=== PATIENT | female | born 1970 | race Caucasian/White ===

== ENCOUNTER 2020-10-09 12:05 | Emergency (ER) | payer OTHER, MEDICAID, SELFPAY ==
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
--- NOTE | ~2020-10-09 | CT_ITS ---
EXAMINATION: CT LEFT LOWER LEG. CLINICAL INFORMATION: Tibial plateau fracture COMPARISON: None TECHNIQUE: Axial 3 mm thin and reformatted 1 mm thin sagittal and coronal images of left lower leg were obtained. DLP 291. FINDINGS: There is a vertical fracture line extending from the lateral tibial plateau inferiorly to the left proximal tibia with mild depression of the tibial plateau, mild displacement and mild soft tissue swelling. No additional fractures seen. There is moderate suprapatellar joint effusion noted. CT/CT lower leg LT wo con IMPRESSION: Lateral tibial depressed and mildly displaced fracture extending to the lateral proximal tibia. There is moderate suprapatellar joint effusion
[2020-10-09 12:12] VITALS: BP 152/87; PULSE 103; RESP 18; TEMP 36.7; O2SAT 100; BMI 37.4
[2020-10-09] MEDS: Acetaminophen 325 MG TABLET 650 MG PO (13:56)
[2020-10-09 14:55] VITALS: BP 146/78; PULSE 78; RESP 16; TEMP 36.9; O2SAT 100
--- NOTE | 2020-10-09 15:42 | ECG_ITS ---
Test Reason : FALL Blood Pressure : / mmHG Vent. Rate : 077 BPM Atrial Rate : 077 BPM P-R Int : 136 ms QRS Dur : 082 ms QT Int : 382 ms P-R-T Axes : 052 021 019 degrees QTc Int : 432 ms Normal sinus rhythm Normal ECG No previous ECGs available Referred By: Demar Barone Electronically Signed By:Saeed Caraballo
[2020-10-09 16:16] LABS: MANUAL DIFF FLAG NO
[2020-10-09 16:18] LABS: Basophils Percent Auto 0.5 % (0-2); Eosinophils Absolute Auto 0.4 X10*3/uL (0.0-0.4); Eosinophils Percent Auto 5.6 % (0-4); Hemoglobin 9.5 g/dl (12.0-16.0); Imm Gran Abs Auto 0.01 X10*3/uL (0.00-0.03); Imm Gran Pct Auto 0.2 % (0.0-0.4); Lymphocytes Percent Auto 29.9 % (20-40); Mean Corpuscular HGB Conc 29.7 g/dl (31.0-35.0); Mean Corpuscular Hemoglobin 20.6 pg (27.0-33.0); Mean Corpuscular Volume 69.3 fL (80-98); Mean Platelet Volume 10.5 fL (9.4-12.3); Monocytes Absolute Auto 0.5 X10*3/uL (0.1-1.2); Monocytes Percent Auto 8.2 % (2-11); Neutrophils Absolute Auto 3.6 X10*3/uL (2.0-8.3); Neutrophils Percent Auto 55.6 % (45-73); Platelet Count 417 X10*3/uL (160-400); Red Blood Count 4.62 X10*6/uL (4.20-5.50); Red Cell Distribution Width 17.8 % (11.0-16.0); White Blood Count 6.6 X10*3/uL (4.8-10.8)
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
[2020-10-09 16:38] LABS: INTERNATIONAL NORM RATIO 1.1 (0.9-1.1); Prothrombin Time 13.2 SEC (10.8-13.0)
[2020-10-09 16:40] LABS: Alanine Aminotransferase 40 U/L (0-31); Alkaline Phosphatase 62 U/L (39-117); Anion Gap 13 (12-20); Aspartate Amino Transferase 30 U/L (5-31); Bilirubin Total 0.3 mg/dL (0.0-1.0); Blood Urea Nitrogen 10 mg/dL (9-16); Calcium 9.2 mg/dL (8.4-10.2); Carbon Dioxide 25 mmol/L (22-29); Chloride 103 mmol/L (96-108); Creatinine Clr Calc Pharmacy 111.6; Estimated Glomerular Filt Rate > 60; Glucose Random 105 mg/dL (60-115); Sodium 137 mmol/L (135-145); Total Protein 7.3 g/dL (6.5-8.0)
[2020-10-09 20:09] VITALS: BP 156/71; PULSE 83; RESP 16; TEMP 36.8; O2SAT 100
[2020-10-09] MEDS: oxyCODONE HCl Immed Release 5 MG TABLET PO (20:35)
[2020-10-09] MEDS: Acetaminophen 325 MG TABLET 975 MG PO (20:35)
--- NOTE | 2020-10-10 02:22 | PC.NURSE ---
PT SLEEPING WITH GOOD RESPIRATORY EFFORT AND RATE.
[2020-10-10 03:25] VITALS: BP 155/69; PULSE 79; RESP 18; O2SAT 98
[2020-10-10] MEDS: Morphine Sulfate Immed Release 15 MG TABLET PO ×3 (03:37→20:06)
[2020-10-10] MEDS: Acetaminophen 325 MG TABLET 650 MG PO ×3 (03:38→16:14)
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
[2020-10-10 09:31] VITALS: BP 140/60; PULSE 71; RESP 20; O2SAT 99
[2020-10-10] MEDS: Losartan Potassium 50 MG TABLET PO (09:37)
[2020-10-10 09:51] LABS: COVID-19 Test Negative (Negative)
--- NOTE | 2020-10-10 10:34 | PC.NURSE ---
Skates Operator made aware of pts current status in the ED. Ortho potentially can do surgery . Pt doesn't feel she can manage at home at this time and she does not qualify for rehab/services for home.
[2020-10-10 12:21] VITALS: BP 131/62; PULSE 67; RESP 18; TEMP 36.4; O2SAT 99
[2020-10-10 16:00] VITALS: RESP 18
[2020-10-10 16:41] VITALS: BP 130/69; PULSE 72; RESP 18; TEMP 37.1; O2SAT 98
[2020-10-10 20:00] VITALS: BP 103/46; PULSE 72; RESP 16; O2SAT 99
--- NOTE | 2020-10-10 20:03 | PC.NURSE ---
Pt resting in bed at this time, awake and alert, reporting severe pain to left leg, requesting PRN pain medication. VSS at this time, pt denies other pain/discomfort. Call carvalho within reach, continue to monitor.
--- NOTE | 2020-10-10 20:08 | PC.NURSE ---
Pt medicated with PRN Morphine for 10/10 pain to left leg. VSS. Call carvalho within reach. Continue to monitor.
--- NOTE | 2020-10-10 22:40 | PC.NURSE ---
Pt requesting DC, aware, pt agreeable until waiting until all labs have resulted.
[2020-10-11] VITALS (7 sets, daily range): BP systolic 103–144; BP diastolic 45–65; PULSE 74–81; RESP 16–18; TEMP 37; O2SAT 97–100
[2020-10-11] MEDS: Morphine Sulfate Immed Release 15 MG TABLET PO ×2 (00:19→08:59)
--- NOTE | 2020-10-11 00:20 | PC.NURSE ---
Pt wakes in bed, requesting Morphine. Pt medicated per MAR for severe pain to left knee. Continue to monitor.
[2020-10-11] MEDS: Losartan Potassium 50 MG TABLET PO (08:58)
[2020-10-11] MEDS: Acetaminophen 325 MG TABLET 650 MG PO (08:59)
[2020-10-11 10:06] LABS: Glucose, Whole Blood 124 mg/dL (60-115)
--- NOTE | 2020-10-11 10:13 | MHC.CM.ED ---
Met with patient and commercial or institutional cleaner. Patient wants to be discharged home to her sister's home. However, she also wants to know if she will need surgery. T/W explained orthopedic was waiting for specific cat scan images before making that decision. T/W asked patient if she followed up with [facility] on 10/05 as recommended in [facility] ER. Patient stated there wasn't a commercial or institutional cleaner to explain the discharge instructions, so she didn't know she had to. Continue to monitor for d/c needs.
--- NOTE | 2020-10-11 15:13 | MHC.CM.ED ---
Received notification from [facility] orthopedic [facility]LIE, that surgery is not urgent and can be done outpatient. Met with patient and sack sorter. Explained surgery will be outpatient and patient will have to follow up with the [facility] orthopedic recommended from their ER. Patient verbalizes understanding. Patient will contact sister to transfer her home. Patient, Jonathan FLORES and Ayesha NELSON aware. Continue to monitor for d/c needs.
[2020-10-11] MEDS: Meclizine HCl 25 MG TABLET PO (17:20)
== END 2020-10-11 17:40 | disposition home or self-care (01) ==
PROVIDERS: Emergency Provider Emergency Medicine Emergency Medical Services
DX: S82.142A Displaced bicondylar fracture of left tibia, initial encounter for closed fracture (principal); V03.00XA Pedestrian on foot injured in collision with car, pick-up truck or van in nontraffic accident, initial encounter; M25.462 Effusion, left knee; I10 Essential (primary) hypertension; Y93.01 Activity, walking, marching and hiking; Y92.414 Local residential or business street as the place of occurrence of the external cause; Y99.9 Unspecified external cause status
CPT/HCPCS: 36415; 73564; 73700; 80053; 82947; 85025; 85610; 85730; 87635; 93005; 96374; 96375; 97161; 99285

== ENCOUNTER 2020-10-28 11:10 | Emergency (ER) | payer MEDICAID, OTHER, SELFPAY ==
[2020-10-28 11:29] VITALS: BP 155/96; PULSE 88; RESP 17; TEMP 36.1; O2SAT 98; BMI 37.9
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
== END 2020-10-28 12:42 | disposition home or self-care (01) ==
PROVIDERS: Emergency Provider Emergency Medicine
DX: M25.562 Pain in left knee (principal); M25.462 Effusion, left knee; S82.14 Bicondylar fracture of tibia; V03.00XD Pedestrian on foot injured in collision with car, pick-up truck or van in nontraffic accident, subsequent encounter
CPT/HCPCS: 99283

== ENCOUNTER 2020-11-10 09:49 | Outpatient (REF) | payer MEDICAID, OTHER, SELFPAY ==
--- NOTE | ~2020-11-10 | XR_ITS ---
EXAMINATION: AP BILATERAL KNEE AND LEFT KNEE. CLINICAL INFORMATION: Follow-up left lateral tibial fracture COMPARISON: Left knee x-ray 10/09/[address] left knee 10/11/2020 TECHNIQUE: AP bilateral knees standing and left knee lateral view. A sunrise view could not be obtained due to brace extending from above the knee to the ankle. FINDINGS: AP bilateral knee and left knee: There is mild reduction in medial and lateral compartment joint space both knees. Abnormality seen along the lateral tibial plateau and proximal tibia is less evident on this AP exam. The lateral view reveals is straight with brace stabilizing it. No abnormal joint effusion seen. The soft tissues are normal. XR/XR knee LT 2V IMPRESSION: Lateral tibial plateau depressed fracture is suboptimally visualized on this exam. There is mild reduction in the mediolateral compartment joint space in both knees. No abnormal left knee suprapatellar joint effusion seen. There are no bone fragments seen.
--- NOTE | ~2020-11-10 | XR_ITS ---
EXAMINATION: AP BILATERAL KNEE AND LEFT KNEE. CLINICAL INFORMATION: Follow-up left lateral tibial fracture COMPARISON: Left knee x-ray 10/09/[address] left knee 10/11/2020 TECHNIQUE: AP bilateral knees standing and left knee lateral view. A sunrise view could not be obtained due to brace extending from above the knee to the ankle. FINDINGS: AP bilateral knee and left knee: There is mild reduction in medial and lateral compartment joint space both knees. Abnormality seen along the lateral tibial plateau and proximal tibia is less evident on this AP exam. The lateral view reveals is straight with brace stabilizing it. No abnormal joint effusion seen. The soft tissues are normal. XR/XR knee standing BI IMPRESSION: Lateral tibial plateau depressed fracture is suboptimally visualized on this exam. There is mild reduction in the mediolateral compartment joint space in both knees. No abnormal left knee suprapatellar joint effusion seen. There are no bone fragments seen.
== END 2020-11-10 09:50 | disposition home or self-care (01) ==
LOC: HO.XRAY 09:49
PROVIDERS: Visit Provider Physician Assistant
DX: M25.561 Pain in right knee (principal); M25.562 Pain in left knee
CPT/HCPCS: 73560; 73565

== ENCOUNTER → 2020-12-08 10:13 | Outpatient (BNVA) | payer OTHER, MEDICAID, SELFPAY | PROVIDERS: Visit Provider Physician Assistant ==

== ENCOUNTER 2021-02-24 09:00 | Outpatient (RCR) | payer OTHER, MEDICAID, SELFPAY ==
--- NOTE | 2020-12-28 09:30 | MHC.PT.EP ---
[facility] [place] Office [place] Office [place] Office [address] [phone] F: [phone] F: [phone] F: [phone] F: [phone] Physical Therapy Plan of Care Date of Evaluation: Date of Surgery: n/a Diagnosis: L tibial plateau fracture Assessment: Patient is a 50 year old R handed female who presents with s/s consistent with L tibial plateau fracture. She is not working at this time. She was previous active and walking often during the day. Patient past medical history is unremarkable. Current impairments include pain, ROM, strength, safety, independence, activity tolerance and functional mobility. Functional limitations include decreased ability to walk, stand, transfer, negotiate stairs, and perform weight bearing activities.. Patient is motivated with good rehab potential. Skilled PT will address impairments and functional limitations in order to achieve goals. Frequency and Duration: The patient will be seen 3x/week for 5 weeks Short Term Goals: Restore normal gait mechanics - 5 weeks Restore strength to 4/5 - 5 weeks LEFS 40/80 - 5 weeks Prison Goals: Restore normal gait mechanics - 5 weeks Restore strength to 4/5 - 5 weeks LEFS 40/80 - 5 weeks Treatment Plan: Modalities to reduce pain, spasms and effusion. Manual therapy to restore motion and function. Therapeutic exercise to improve strength and flexibility. Neuromuscular re-education for posture and balance. Therapeutic activities to return to functional activities of daily living. Electronically signed by: Devonte Boone PT Please sign and return to therapist. Thank you for your referral.
--- NOTE | 2021-05-03 14:03 | MHC.PT.DC ---
[facility] [place] Office [place] Office [place] Office [address] 140 [facility] [phone] F: [phone] F: [phone] F: [phone] F: [phone] Physical Therapy Discharge Report Diagnosis: L tibial plateau fracture Date of Surgery: n/a Date of Evaluation: 12/27/20 Date of Discharge: 03/09/21 Treatments to Date: 16 Cancellations to Date: 0 No Shows to Date: Discharge Status: Independent with HEP Discharge Summary: I with HEP. AROM WNL. Strength 4+/5 grossly. Normal gait and stair mechanics. LEFS 54/80. Appropriate to d/c to HEP at this time. Electronically signed by: Devonte Boone PT Please sign and return to therapist. Thank you for your referral.
== END 2021-05-03 14:03 | disposition home or self-care (01) ==
LOC: HO.PTCHIC 09:00
PROVIDERS: Visit Provider Physician Assistant
DX: S82.142D Displaced bicondylar fracture of left tibia, subsequent encounter for closed fracture with routine healing (principal)
CPT/HCPCS: 97110; 97116; 97161; 97530

== ENCOUNTER 2021-11-28 03:02 | Emergency (ER) | payer MEDICAID, OTHER, SELFPAY ==
[2021-11-28 03:19] VITALS: BP 185/83; PULSE 93; RESP 18; TEMP 36.7; O2SAT 94; BMI 28.1
--- NOTE | 2021-11-28 03:22 | PC.NURSE ---
pt vomited on arrival, hob elevated with staff at her side. pt is niuean speaking, calm and cooperative.
--- NOTE | 2021-11-28 03:55 | ED.GENADULT ---
HPI - General Adult General Chief complaint: ETOH/Substance Use Stated complaint: etoh Time Seen by Provider: 11/28/21 03:54 History of Present Illness HPI narrative: this is a 51-year-old female who had been drinking this last evening and then developed nausea and vomiting times several episodes. Patient has history of hypertension. She denies any chest pain shortness of breath. She has some upper abdominal discomfort. Related Data Home Medications Medication Instructions Recorded Confirmed losartan 50 mg tablet 1 tab PO DAILY 10/09/20 10/09/20 Previous Rx's Medication Instructions Recorded oxycodone-acetaminophen 5 mg-325 1 tab PO TID PRN pain #7 tabs 10/28/20 mg tablet (Percocet) hydrocodone 5 mg-acetaminophen 325 1 tab PO BID PRN pain, severe 7 11/10/20 mg tablet days #14 tabs cane #1 ea 12/08/20 ondansetron 4 mg disintegrating 4 mg PO Q6H PRN nausea and 11/28/21 tablet vomiting #7 tabs Allergies Allergy/AdvReac Type Severity Reaction Status Date / Time No Known Allergies Allergy Verified 11/10/20 10:36 Review of Systems Review of Systems: As per HPI Gastrointestinal: Gastrointestinal: Reports nausea and Reports vomiting [facility] Past Medical History Medical History HTN (hypertension) Social History Social History (Updated 11/10/20 @ 10:37 by TORI Jordan) Alcohol intake: never Patient Tobacco Use Status: Never used Tobacco Current occupational status: retired and disabled Current occupation: Left handed Physical Exam ED Vital Signs: Vital Signs - 24 hr 11/28/21 03:19 Temperature 98.1 F Pulse Rate 93 Respiratory Rate 18 Blood Pressure 185/83 H Pulse Oximetry 94 Oxygen Delivery Method Room Air BMI result Body Mass Index 28.1 Const Other: patient dry heaving, uncomfortable appearing initially. Patient is somewhat somnolent consistent with waning alcohol intoxication General: no acute distress Orientation/consciousness: patient oriented x3 HENMT Head: Yes normal to inspection General nose exam: Normal external nose present Mouth: moist mucous membranes Throat: Yes posterior oropharynx normal, Yes tonsils normal and Yes uvula midline Eyes Eyelids: Yes eyelids normal Conjunctivae: conjunctivae normal Pupils: Equal, round and reactive pupils present Neck Neck: Yes supple Resp Effort & Inspection: normal respiratory effort Auscultation: clear to auscultation bilaterally Cardio Rate: regular rate Rhythm: regular rhythm Heart sounds: S1 normal heart sound present, S2 normal heart sound present, no gallops, no murmurs and no rubs GI Inspection: No distended Palpation (GI): Soft to palpation and nontender Auscultation: normal bowel sounds Skin General skin exam: other (Warm and dry) Neuro General: patient oriented x3 and CN's II-XI intact bilaterally Cranial nerves: Yes Equal, round and reactive pupils present Extrem General: Yes no pedal edema Psych Affect: normal affect Attitude: cooperative Medical Decision Making MDM Narrative Medical decision making narrative: Patient with acute alcohol intoxication, developed nausea and vomiting, then dry heaves. Patient was treated with ondansetron ODT and had improvement, was able to fall asleep. Patient will be discharged home with a prescription for ondansetron. Discharge Plan Discharge Clinical Impression: Alcohol intoxication, Vomiting Patient Disposition: Home, Self-Care Instructions: Alcohol Intoxication (ED), Acute Nausea and Vomiting (ED) Additional Instructions: Avoid alcohol in excess. Uses ondansetron as prescribed for nausea. Return for any worsened symptoms such as progressive abdominal pain. Prescriptions: New ondansetron 4 mg tablet,disintegrating 4 mg PO Q6H PRN (Reason: nausea and vomiting) Qty: 7 0RF No Action hydrocodone-acetaminophen 5-325 mg tablet 1 tab PO BID PRN (Reason: pain, severe) 7 Days Qty: 14 0RF losartan 50 mg tablet 1 tab PO DAILY oxycodone-acetaminophen [Percocet] 5-325 mg tablet 1 tab PO TID PRN (Reason: pain) Qty: 7 0RF (DME) cane Device See Rx Instructions .MEDSUPPLY Qty: 1 0RF Rx Instructions: As directed
[2021-11-28] MEDS: Ondansetron ODT 4 MG TAB.RAPDIS TRANSLINGU (05:01)
--- NOTE | 2021-11-28 05:03 | PC.NURSE ---
pt ambulated to bathroom with assist. pt gait was slow, nausea, pt urinated and has her period at this time. pt sister is at bedside. pt treated wtih zofran orally as discussed with provider, no iv or fluids at this time, plan is to treat with nausea then fluid challenge and ambulate and discharge.
--- NOTE | 2021-11-28 06:39 | PC.NURSE ---
pt a&o, Reviewed discharge instructions. Pt verbalized understanding. Pt wheeled out with family member to waiting room for by picked up.
== END 2021-11-28 06:45 | disposition home or self-care (01) ==
LOC: HO.ED 06:34
PROVIDERS: Emergency Provider Emergency Medicine
DX: F10.920 Alcohol use, unspecified with intoxication, uncomplicated (principal); Y90.9 Presence of alcohol in blood, level not specified; R10.10 Upper abdominal pain, unspecified; R11.10 Vomiting, unspecified; I10 Essential (primary) hypertension
CPT/HCPCS: 96361; 96374; 99283; 99284